=== PATIENT | female | born 1995 | race Asian ===

== ENCOUNTER → 2018-08-03 | Outpatient (CLI) | payer SELFPAY ==
[2018-08-03 13:49] LABS: BASO # 0.1 10^3/uL (0.0-0.2); BASO % 0.6 % (0.0-1.0); EOS # 0.2 10^3/uL (0.0-0.50); EOS % 1.8 % (0.0-3.0); HEMATOCRIT 36.7 % (36.0-47.0); HEMOGLOBIN 12.6 g/dl (12.0-15.5); LYMPH # 1.7 10^3/uL (1.5-6.5); LYMPH % 18.2 % (24.0-44.0); MEAN CORPUSCULAR HEMOGLOBIN 30.6 pg (27.0-33.0); MEAN CORPUSCULAR HGB CONC 34.3 g/dl (32.0-36.5); MEAN CORPUSCULAR VOLUME 89.1 fl (80.0-96.0); MONO # 0.6 10^3/uL (0.0-0.8); NEUTROPHILS # 6.9 10^3/uL (1.8-7.7); NEUTROPHILS % 73.1 % (36.0-66.0); PLATELET COUNT, AUTOMATED 339 10^3/uL (150-450); RED BLOOD COUNT 4.12 10^6/uL (4.00-5.40); WHITE BLOOD COUNT 9.4 10^3/uL (4.0-10.0)
[2018-08-03 15:18] LABS: CHLAMYDIA DNA AMPLIFICATION NEGATIVE (NEGATIVE); GC DNA AMPLIFICATION NEGATIVE (NEGATIVE)
[2018-08-04 10:59] LABS: HEPATITIS C VIRUS ABY INDEX 0.1 INDEX (<0.8); HIV 1&2 SCREEN CENTAUR NEGATIVE (NEGATIVE); RUBELLA IgG QUALITATIVE IMMUNE (IMMUNE)
== END ==
LOC: EDBD → M SMT 10:31
PROVIDERS: ATTEND Advanced Practice Midwife
DX: Z34.81 Encounter for supervision of other normal pregnancy, first trimester (principal); Z36.89 Encounter for other specified antenatal screening

== ENCOUNTER → 2018-09-18 | Outpatient (REF) | payer SELFPAY | LOC: M LAB REF 17:33 | PROVIDERS: ATTEND Obstetrics & Gynecology | DX: Z34.82 Encounter for supervision of other normal pregnancy, second trimester (principal); Z3A.00 Weeks of gestation of pregnancy not specified | CPT/HCPCS: 87086; G0123 ==

== ENCOUNTER → 2018-12-06 | Outpatient (CLI) | payer SELFPAY ==
[2018-12-06 20:24] LABS: HEMATOCRIT 32.8 % (36.0-47.0); HEMOGLOBIN 10.5 g/dl (12.0-15.5); MEAN CORPUSCULAR HEMOGLOBIN 30.8 pg (27.0-33.0); MEAN CORPUSCULAR VOLUME 96.2 fl (80.0-96.0); PLATELET COUNT, AUTOMATED 267 10^3/uL (150-450); RED BLOOD COUNT 3.41 10^6/uL (4.00-5.40); WHITE BLOOD COUNT 8.4 10^3/uL (4.0-10.0)
== END ==
LOC: M WUC 15:09
PROVIDERS: ATTEND Obstetrics & Gynecology
DX: Z34.02 Encounter for supervision of normal first pregnancy, second trimester (principal); Z3A.00 Weeks of gestation of pregnancy not specified

== ENCOUNTER → 2018-12-27 | Outpatient (CLI) | payer SELFPAY ==
--- NOTE | 2018-12-28 07:56 | REP ---
OB ULTRASOUND: Real-time sonographic evaluation of the gravid uterus performed. There is a single intrauterine gestation with an estimated age 31 weeks. 3 days, EDC 02/25/2019. Today's measurements indicate appropriate growth. Biometry and Growth: BPD 76 mm = 30 weeks 5 days, 39th percentile HC 285 mm = 31 weeks 2 days, 49th percentile AC 259 mm = 30 weeks 1 day, 30th percentile FL 59 mm = 30 weeks 5 days, 40th percentile HC/AC ratio 1.10 within normal range. Estimated weight 1578 grams, 24th percentile. SEEN/GROSSLY UNREMARKABLE Lateral ventricles Yes Posterior fossa Yes Upper lip Yes Four-chamber heart Yes LVOT Yes RVOT Yes Stomach Yes Cord insertion Yes Three vessel cord Yes Kidneys Yes Bladder Yes Spine Yes Cervical length: Closed and measures 2.6 cm in length. heart rate: 149 beats per minute. position: Vertex. Placenta: Anterior and grade 3 with no previa or abruption. Amniotic fluid: Within normal limits, WALLACE 18.8 within normal range of 8.7 to 24.0. S/D ratio: 3.12 and RI 0.68 within normal range. Electronically Signed by Angel Lobo MD 12/28/2018 09:24 A
== END ==
LOC: M RAD 17:22
PROVIDERS: ATTEND Obstetrics & Gynecology
DX: O26.843 Uterine size-date discrepancy, third trimester (principal); Z3A.31 31 weeks gestation of pregnancy

== ENCOUNTER → 2019-01-31 | Outpatient (CLI) | payer SELFPAY | LOC: M WUC 15:45 | PROVIDERS: ATTEND Advanced Practice Midwife | DX: Z34.03 Encounter for supervision of normal first pregnancy, third trimester (principal); Z3A.00 Weeks of gestation of pregnancy not specified ==

== ENCOUNTER → 2019-02-09 | Outpatient (CLI) | payer SELFPAY ==
[~2019-02-09] MED LIST: GNP28TAB2 PO
--- NOTE | 2019-02-09 14:36 | REP ---
Clinical: Growth evaluation Comparison: 12/27/2018 . Findings: Examination demonstrates a single live intrauterine in cephalic presentation. motion is identified by technologist. Placenta is noted the anterior and grade three without evidence for placenta previa or abruption. Amniotic fluid volume is normal. Cervix measures 2.3 cm in length and appears closed. No evidence for nuchal cord. Gestational age by LMP 37 weeks 5-day with BERTHA is 02/25/2019 . Gestational age by current measurements 34 weeks 0 days with BERTHA 03/23/2019 . FHR equals 140 beats per minute. BPD 8.6 cm 34 weeks 5 days HC 30.2 cm 33 weeks 4 days (less than 5th percentile) AC 29.1 cm 33 weeks 1 day (less than 5th percentile) FL 6.7 cm 34 weeks 4 days (less than 5th percentile) HL 5.8 cm 33 weeks 5 days (less than 5th percentile) HC/AC ratio 1.04 Estimated weight 2261 grams ( less than 3% percentile). Amniotic fluid index: 13.9 cm (7.4 - 24.1) Impression: Single live advanced gestation in cephalic presentation demonstrating less than appropriate interval growth. Electronically Signed by Lex Goins MD 02/09/2019 02:28 P
== END ==
LOC: M RAD 13:13
PROVIDERS: ATTEND Advanced Practice Midwife
DX: O26.13 Low weight gain in pregnancy, third trimester (principal); Z3A.37 37 weeks gestation of pregnancy

== ENCOUNTER 2019-02-14 10:33 | Inpatient (IN) | payer SELFPAY ==
[2019-02-14] VITALS (23 sets, daily range): BP systolic 95–124; BP diastolic 56–85
[~2019-02-14] VITALS: Ht 157.5 cm; Wt 45.4 kg
[2019-02-14] MEDS ORDERED: GNP28TAB2 PO (10:59)
[2019-02-14] MEDS ORDERED: OXYTOCIN DRIP 30 UNITS in APPROPRIATE DILUENT 1 EA IV SCH (12:15)
[2019-02-14] MEDS: LR 1,000 ML IV SCH ×3 (12:27→23:47)
[2019-02-14 12:35] LABS: HEMATOCRIT 35.6 % (36.0-47.0); HEMOGLOBIN 11.5 g/dl (12.0-15.5); MEAN CORPUSCULAR HEMOGLOBIN 29.4 pg (27.0-33.0); MEAN CORPUSCULAR HGB CONC 32.3 g/dl (32.0-36.5); PLATELET COUNT, AUTOMATED 285 10^3/uL (150-450); RED BLOOD COUNT 3.91 10^6/uL (4.00-5.40); WHITE BLOOD COUNT 7.4 10^3/uL (4.0-10.0)
--- NOTE | 2019-02-14 12:45 | HPE ---
DATE OF ADMISSION: 02/14/2019 HISTORY: Yanet is a 23-year-old, 1, para 0, at 38-3/7 weeks, expected date of confinement (EDC) of 02/25/2019 based on first trimester ultrasound who presents to labor and delivery today per consult of Dr. Hipolito Rodriguez for induction of labor due to intrauterine growth restricted fetus. She denies any painful contractions, vaginal bleeding or leakage of fluid. She does report the fetus has been active. The care was initiated at [facility] in the first trimester. course complicated by low body mass index (BMI). OBSTETRICAL HISTORY: Primigravid. OBSTETRIC LABS: O+, antibody screen negative, rubella immune, VDRL nonreactive. Urine culture, no growth followup after following treatment. Hepatitis B surface antigen negative. HIV negative. Hepatitis C antibody nonreactive. Gonorrhea and chlamydia negative. She did decline genetic serum screening labs. (GDS) gestational diabetic screening normal at 90. Her GBS is negative. PAST MEDICAL HISTORY: Childhood varicella. SURGERIES: None. FAMILY HISTORY: Noncontributory. SOCIAL HISTORY: The patient is single however the father of the baby is at bedside and supportive. She is a nonsmoker. Denies alcohol or drug use. She does report a history of chlamydia. Denies history of abuse - physical, sexual and emotional. ALLERGIES: SHELLFISH DERIVED PRODUCTS. CRAB EXTRACT. SHRIMP. CURRENT MEDICATIONS: vitamins OBJECTIVE: Temperature 98.5, pulse 91, respirations 18, BP 109/76. She is alert and oriented times three, in no apparent distress. heart rate 140 with moderate variability, positive accelerations, no decelerations. There is no pattern of regular contractions. Her abdomen is gravid, cephalic presentation. Estimated weight 2300 grams. Sterile Vaginal Exam: 3-4 cm, 80% effaced, 0 station. Most recent obstetric ultrasound with an estimated weight of 2261 grams, less than the third percentile. WALLACE is 13.9 cm. ASSESSMENT: Intrauterine at 38-3/7 weeks. heart rate category one. Intrauterine growth restriction. PLAN: Admit the patient to labor and delivery. Out of bed ad elizabeth. Clear liquid , following her finishing her current lunch. Routine lab work. I will start Pitocin IV for labor induction. I did review risks, benefits and alternatives. The patient and her partner have had their questions answered. She has been verbally consented for emergency surgery and blood products if necessary. I do anticipate a labor and a spontaneous vaginal delivery.
[2019-02-15] VITALS (10 sets, daily range): BP systolic 90–141; BP diastolic 54–84
[2019-02-15] MEDS ORDERED: OXYTOCIN DRIP 30 UNITS in APPROPRIATE DILUENT 1 EA IV SCH (00:46)
[2019-02-15] MEDS ORDERED: ANUSOL HC CREAM 30GM TOP PRN (01:00)
[2019-02-15] MEDS ORDERED: METHYLERGONOVINE MALEATE 0.2 MG TAB PO PRN (01:00)
[2019-02-15] MEDS ORDERED: IBUPROFEN 800 MG TAB PO PRN (01:00)
[2019-02-15] MEDS ORDERED: DIBUCAINE 1% OINTMENT 30GM TOP PRN (01:00)
[2019-02-15] MEDS ORDERED: DOCUSATE SODIUM 100 MG CAP PO PRN (01:00)
[2019-02-15] MEDS ORDERED: LIDOCAINE 1% MDV 20ML VIAL INFIL ONE (01:00)
[2019-02-15] MEDS ORDERED: RHOGAM 300 MCG (1500 IU) INJ (J2790) IM SCH (01:00)
[2019-02-15] MEDS ORDERED: MEASLES,MUMPS,RUBELLA VACCINE INJ (MMR-II) (90707) SC SCH (01:00)
[2019-02-15] MEDS ORDERED: IBUPROFEN 600 MG TAB PO PRN (01:00)
--- NOTE | 2019-02-15 08:29 | DN ---
DATE OF DELIVERY: 02/15/2019 Yanet is at 23-year-old 1, para 1-0-0-1 now, who was admitted to labor and delivery for induction of labor due to suspected intrauterine growth restricted fetus. IV Pitocin was utilized and labor did ensue. She coped with her labor physiologically. She had assisted rupture of membranes for a large amount of clear fluid at 2234 hours. She reached complete dilation at 2359 hours, pushed to a normal spontaneous vaginal delivery of a live female in OA position with restitution to ROT position at 0014 hours. shoulders delivered spontaneously and the corpus immediately followed. was placed on the maternal abdomen crying and active. Mouth and nares were bulb suctioned. Cord was clamped times two once pulsations ceased and cut by the father of the baby under my direction. Cord blood was obtained. Spontaneous expulsion of an intact placenta with three-vessel cord by Spears mechanism was at 0021 hours. Uterine hemostasis achieved with IV Pitocin rapid infusion and uterine fundal massage. Estimated blood loss 200 mL. Perineum and vagina inspected noted to have bilateral labial lacerations and a first-degree midline laceration. The right labial laceration and the midline vaginal laceration were infiltrated with 1% lidocaine and repaired with #3-0 Rapide in the usual fashion. Klemme female weighed 5 pounds 1 ounce, 2300 grams, appears to be small for gestational age versus intrauterine growth restricted infant. scores were 9 and 9. Mom is going to breastfeed her daughter and the family have named her Marilyn Walters. At the close of delivery lap counts, needle counts and instrument counts were correct and verified.
[2019-02-15] MEDS: PRENATAL VITAMINS CHEWABLE TABLET PO SCH (09:55)
[2019-02-15] MEDS: ACETAMINOPHEN TAB 650MG DOSE (2X325MG) PO PRN (19:39)
[2019-02-16 06:27] VITALS: BP 106/68
[2019-02-16] MEDS: PRENATAL VITAMINS CHEWABLE TABLET PO SCH (08:52)
[2019-02-16] MEDS: ACETAMINOPHEN 500 MG TAB PO PRN (08:53)
[2019-02-16] MEDS ORDERED: ADACEL/BOOSTRIX VACCINE (DIPHTH/PERTUSS/ACELL/TETANUS)0.5ML SYR (90715) IM ONE (09:00)
[2019-02-16 18:27] VITALS: BP 105/57
[2019-02-16] MEDS: ACETAMINOPHEN TAB 650MG DOSE (2X325MG) PO PRN (20:50)
[2019-02-17 06:15] VITALS: BP 101/72
[2019-02-17] MEDS: ACETAMINOPHEN 500 MG TAB PO PRN (08:30)
[2019-02-17] MEDS: PRENATAL VITAMINS CHEWABLE TABLET PO SCH (08:31)
== END 2019-02-17 13:15 | disposition home or self-care (01) | DRG 560 ==
LOC: M LDI 10:33 → M OBS 02-15 02:23
PROVIDERS: ADMIT Advanced Practice Midwife; ATTEND Advanced Practice Midwife
PROC: 3E033VJ Introduction of Other Hormone into Peripheral Vein, Percutaneous Approach (ICD-10-PCS; 2019-02-14)
PROC: 10907ZC Drainage of Amniotic Fluid, Therapeutic from Products of Conception, Via Natural or Artificial Opening (ICD-10-PCS; 2019-02-14)
PROC: 10E0XZZ Delivery of Products of Conception, External Approach (ICD-10-PCS; principal; 2019-02-15)
PROC: 0HQ9XZZ Repair Perineum Skin, External Approach (ICD-10-PCS; 2019-02-15)
DX: O36.5930 Maternal care for other known or suspected poor fetal growth, third trimester, not applicable or unspecified (principal); O70.0 First degree perineal laceration during delivery; Z3A.38 38 weeks gestation of pregnancy; Z37.0 Single live birth

== ENCOUNTER → 2019-07-05 | Outpatient (CLI) | payer SELFPAY, OTHER ==
[~2019-07-05] MED LIST changes: +KEFL500C17 PO
[2019-07-05 20:30] LABS: HEMATOCRIT 37.4 % (36.0-47.0); HEMOGLOBIN 11.9 g/dl (12.0-15.5); MEAN CORPUSCULAR HEMOGLOBIN 29.5 pg (27.0-33.0); MEAN CORPUSCULAR HGB CONC 31.8 g/dl (32.0-36.5); MEAN CORPUSCULAR VOLUME 92.8 fl (80.0-96.0); PLATELET COUNT, AUTOMATED 332 10^3/uL (150-450); RED BLOOD COUNT 4.03 10^6/uL (4.00-5.40); WHITE BLOOD COUNT 9.9 10^3/uL (4.0-10.0)
[2019-07-05 22:20] LABS: CHLAMYDIA DNA AMPLIFICATION NEGATIVE (NEGATIVE); GC DNA AMPLIFICATION NEGATIVE (NEGATIVE)
[2019-07-06 10:39] LABS: RUBELLA IgG QUALITATIVE IMMUNE (IMMUNE)
[2019-07-06 11:08] LABS: HEPATITIS C VIRUS ABY INDEX 0.2 INDEX (<0.8); HIV 1&2 SCREEN CENTAUR NEGATIVE (NEGATIVE)
== END ==
LOC: M WUC 16:44
PROVIDERS: ATTEND Advanced Practice Midwife
DX: Z33.1 Pregnant state, incidental (principal)

== ENCOUNTER 2019-07-06 16:32 | Emergency (ER) | payer OTHER, SELFPAY ==
[~2019-07-06] VITALS: Ht 160 cm; Wt 41.3 kg
[~2019-07-06 16:32] MED LIST changes: -KEFL500C17 PO
[2019-07-06 19:02] LABS: BASO % 0.5 % (0.0-1.0); EOS # 0.2 10^3/uL (0.0-0.5); EOS % 2.2 % (0.0-3.0); HEMOGLOBIN 12.8 g/dl (12.0-15.5); LYMPH # 2.1 10^3/uL (1.5-5.0); LYMPH % 23.4 % (24.0-44.0); MEAN CORPUSCULAR HEMOGLOBIN 29.6 pg (27.0-33.0); MEAN CORPUSCULAR VOLUME 92.4 fl (80.0-96.0); MONO # 0.5 10^3/uL (0.0-0.8); MONO % 5.9 % (0.0-5.0); NEUTROPHILS % 67.7 % (36.0-66.0); PLATELET COUNT, AUTOMATED 361 10^3/uL (150-450); RED BLOOD COUNT 4.33 10^6/uL (4.00-5.40); WHITE BLOOD COUNT 8.8 10^3/uL (4.0-10.0)
[2019-07-06 19:36] LABS: BLOOD UREA NITROGEN 6 MG/DL (7-18); CALCIUM LEVEL 9.6 MG/DL (8.5-10.1); CARBON DIOXIDE LEVEL 24 MEQ/L (21-32); CHLORIDE LEVEL 104 MEQ/L (98-107); CREATININE FOR GFR 0.73 MG/DL (0.55-1.30); GLOMERULAR FILTRATION RATE > 60.0 (>60); GLUCOSE, FASTING 87 MG/DL (70-100); HCG, SERUM QUANTITATIVE 91599 MIU/ML; POTASSIUM SERUM 3.7 MEQ/L (3.5-5.1); SODIUM LEVEL 136 MEQ/L (136-145)
--- NOTE | 2019-07-06 20:13 | REPVR ---
PROCEDURE INFORMATION: Exam: US First Trimester, Transabdominal Exam date and time: 07/06/2019 8:09 PM Age: 24 years old Clinical indication: Lmp or gestational age (in weeks): 11wks; Other: Vag bleeding; ; Additional info: Vaginal bleeding, 11 wks TECHNIQUE: Imaging protocol: Real-time transabdominal obstetrical ultrasound of the maternal pelvis and a first trimester , less than 14 weeks 0 days, with image documentation. COMPARISON: No relevant prior studies available. FINDINGS: GESTATION: Gestation: Single living gestation demonstrated within the uterus. Heart rate: heart rate is 160 bpm. Placenta: There is a 2.1 x 3.8 x 2.5 cm para placental subchorionic hemorrhage demonstrated. Amniotic fluid: Amniotic and chorionic fluid are normal for gestational age. BIOMETRY: Estimated gestational age: Gestational age based on crown-rump length is 11 weeks 6 days. This corresponds with LMP of 04/20/2019 predicting an age of 11 weeks. Palermo-Rump length: Palermo-rump length measures 5.2 cm. Estimated due date: EDC is 01/19/2020. MATERNAL: Uterus: Unremarkable. Cervix: Unremarkable. Right adnexa: Unremarkable. Left adnexa: Unremarkable. Intraperitoneal: No intraperitoneal free fluid. IMPRESSION: Subchorionic hemorrhage as described above. Otherwise unremarkable scan at 11 weeks 6 days using ultrasound measurements. Detailed structural survey can be performed between 19-20 weeks if clinically desired. Electronically signed by: Prince Chow On 07/06/2019 20:12:51 PM
[2019-07-06] MEDS ORDERED: KEFL500C17 PO (23:02)
[2019-07-06 23:10] VITALS: BP 107/52
[2019-07-06 23:26] LABS: CHLAMYDIA DNA AMPLIFICATION NEGATIVE (NEGATIVE); GC DNA AMPLIFICATION NEGATIVE (NEGATIVE)
== END 2019-07-06 23:12 | disposition home or self-care (01) ==
LOC: M ED 16:32
DX: O20.8 Other hemorrhage in early pregnancy (principal); O23.41 Unspecified infection of urinary tract in pregnancy, first trimester; Z87.891 Personal history of nicotine dependence; Z3A.11 11 weeks gestation of pregnancy

== ENCOUNTER → 2019-07-19 | Outpatient (REF) | payer SELFPAY ==
[~2019-07-19] MED LIST changes: +KEFL500C17 PO
== END ==
LOC: M SFHCWAGY 10:53
PROVIDERS: ATTEND Advanced Practice Midwife
DX: Z33.1 Pregnant state, incidental (principal)

== ENCOUNTER 2019-08-23 22:02 | Emergency (ER) | payer SELFPAY ==
[~2019-08-23] VITALS: Ht 160 cm; Wt 41.6 kg
[2019-08-23 22:04] VITALS: BP 112/69
[2019-08-23] MEDS ORDERED: ACET1TAB55 PO (22:09)
[2019-08-23 22:56] LABS: INFLUENZA A AMPLIFICATION NEGATIVE (NEGATIVE); INFLUENZA B AMPLIFICATION POSITIVE (NEGATIVE)
[2019-08-23] MEDS ORDERED: OSELTAMIVIR PHOSPHATE 75 MG CAP (TAMIFLU) PO ONE (23:30)
[2019-08-23] MEDS ORDERED: OSEL75CA PO (23:55)
== END 2019-08-24 00:16 | disposition home or self-care (01) ==
LOC: M ED 22:02
DX: O99.512 Diseases of the respiratory system complicating pregnancy, second trimester (principal); J11.89 Influenza due to unidentified influenza virus with other manifestations; Z3A.18 18 weeks gestation of pregnancy; Z91.013 Allergy to seafood

== ENCOUNTER → 2019-09-14 | Outpatient (CLI) | payer SELFPAY ==
[~2019-09-14] MED LIST changes: +ACET1TAB55 PO; +OSEL75CA PO
--- NOTE | 2019-09-14 19:18 | REP ---
Obstetric sonography: History: Supervision of , for anatomy. Findings: Scanning through the gravid uterus demonstrates a viable single intrauterine gestation in a transverse lie, head to the maternal left. motion is observed and heart rate is recorded at 149 beats per minute. A posterior grade 0 placenta is seen without evidence of previa or abruption. Amniotic fluid is subjectively normal. Closed cervical length is viewed transabdominally at 4.3 cm. No extrauterine abnormalities observed. nose and lips are seen but facial profile is less than optimally seen due to position. The following additional anatomic structures are identified today and felt to be unremarkable: cranium, choroid plexus, cavum, cerebellum and posterior fossa, four-chamber heart with left and right ventricular outflow tract views, diaphragm, left-sided stomach, abdominal wall cord insertion, three-vessel umbilical cord, kidneys and bladder, spine, upper and lower extremities. Biometry chart: BPD 5.3 cm = 22 weeks 2 days HC 19.3 cm = 21 weeks 4 days AC 14.6 cm = 19 weeks 6 days FL 3.5 cm = 21 weeks 0 days HL 3.3 cm = 20 weeks 6 days HC/AC ratio 1.33 (1.05-1.24. Cephalic index normal 0.78. Estimated weight 361 grams, 0 pounds 12 ounces, 32nd percentile for 21 weeks 0 days. Impression: Viable single intrauterine gestation at 20 weeks 6 days by today's composite sonographic criteria. Expected gestational age estimate based on prior sonography is 21 weeks 0 days. BERTHA by prior sonography January 25, 2020.
== END ==
LOC: M WHC 15:10
PROVIDERS: ATTEND Advanced Practice Midwife
DX: Z36.3 Encounter for antenatal screening for malformations (principal); Z3A.20 20 weeks gestation of pregnancy

== ENCOUNTER → 2019-10-23 | Outpatient (REF) | payer OTHER ==
[2019-10-23 17:34] LABS: MEAN CORPUSCULAR HEMOGLOBIN 31.6 pg (27.0-33.0); MEAN CORPUSCULAR HGB CONC 32.4 g/dl (32.0-36.5); MEAN CORPUSCULAR VOLUME 97.4 fl (80.0-96.0); PLATELET COUNT, AUTOMATED 271 10^3/uL (150-450); WHITE BLOOD COUNT 8.3 10^3/uL (4.0-10.0)
== END ==
LOC: M PLALAB 12:43
PROVIDERS: ATTEND Advanced Practice Midwife
DX: Z34.82 Encounter for supervision of other normal pregnancy, second trimester (principal)

== ENCOUNTER 2019-12-03 13:06 | Inpatient (IN) | payer SELFPAY ==
[2019-12-03] VITALS (20 sets, daily range): BP systolic 96–133; BP diastolic 50–82
[~2019-12-03] VITALS: Ht 157.5 cm; Wt 45.2 kg
[2019-12-03] MEDS ORDERED: LACTATED RINGER'S 1000 ML IV STA (13:33)
[2019-12-03] MEDS ORDERED: PENICILLIN G POTASSIUM IV 5 MU in D5W MINI-BAG PLUS 100 ML IV STA (13:33)
[2019-12-03] MEDS ORDERED: LR 1,000 ML IV SCH (13:33)
[2019-12-03] MEDS ORDERED: BETAMETHASONE SOLUSPAN 6MG/ML 5ML VIAL (J0702 PER 3MG) As Ordered ONE (13:35)
[2019-12-03] MEDS ORDERED: MAGNESIUM *L&D* 4GM/100ML BAG (40MG/ML) IV ONE (13:45)
[2019-12-03] MEDS ORDERED: BETAMETHASONE SOLUSPAN 6MG/ML 5ML VIAL (J0702 PER 3MG) IM SCH (13:45)
[2019-12-03] MEDS ORDERED: MAG Sulf (OBGYN) 20GM/500ML 20,000 MG in IV 1 EA IV SCH (13:45)
--- NOTE | 2019-12-03 13:54 | HPEPDOC ---
Obstetrical History & Physical General Date of Admission December 03, 2019 at 13:33 Primary Care Physician: YVROSE CLINE CNM History of Present Illness Patient is a 24-year-old female who is a at 32.4 weeks gestation with an BERTHA of 01/24/20 based off of her first trimester ultrasound. Her has been uncomplicated. She has not been seen since September but had a telephone visit in October but hasn't been seen in the office since. She presents to L&D in active labor. She reports she started cramping after sex last night and was a ble to sleep then about 11:00 she started getting regular cramping every 5 minutes but reports that she didn't feel like it was labor. She states that she came into L&D when she had some bright red spotting when she went to the bathroom. After she had the spotting she reports her contractions became painful. She reports active movement. She denies leaking of fluid. Chief Complaint: Other (active labor) Information Provided By: Patient Age: 24 : 2 Term: 1 Pre-term: 0 Abortions: 0 Livin Care Care: Limited Care Dating Final EDC: Jan 24, 2020 Final EDC by: 1st trimester (US) EGA at Admission: 32.4 Antepartum Course Diagnos(e)s labor Height (inches): 62 Pre- weight (lbs.): 92 Admission Weight (lbs.): 99 Change in Weight (lbs.): 7 Past Medical History Past Obstetrical History : Past Obstetrical History: Primgravida Gestation: 38.4 Type of Delivery: Spontaneous Vaginal Del. (02/15/2019) Sex of Infant: Female Complications: Yes (suspected IUGR but was SGA-induced due to this) GENERAL MAINTENANCE MECHANIC History: History of STD (chlamydia) Past Medical History Medical History no pertinent medical history Surgical History: Denies/None Family History Significant Family History: No pertinent family hx Social History Marital Status: Single Family situation: Spouse/partner home Psychosocial History: No pertinent psych hx * Smoker: non-smoker Alcohol: Denies Drugs: denies Abuse Violence Screening Have you been hit/kicked/slapp: No Have you been sexually assault: No Allergies Coded Allergies: SEAFOOD (Verified Allergy, Mild, RASH, 08/23/19) Medications Scheduled Acetaminophen (Acetaminophen) 325 Mg Tablet, 3 TAB PO DAILY for pain or fever Oseltamivir Phosphate (Tamiflu) 75 Mg Capsule, 1 CAP PO BID Pnv No.95/Ferrous Fum/Folic AC ( Vitamins Tablet) 1 Each Tablet, 1 TAB PO DAILY Physical Examination Physical Examination GENERAL: Alert and oriented times three. BREAST: . ABDOMEN: Gravid and non-tender to touch. FETUS: Is vertex (VTX) by sterile vaginal examination (SVE), fetus is vertex (VTX) by Deuce and by bedside sono. HEART RATE: Regular rate and rhythm. LUNGS: Clear to auscultation (CTA). PERINEUM: Small amount of blood noted at the introitus. SSE done showing membranes. EXTREMITIES: No edema. No clonus. Deep tendon reflexes (DTRs) + . Laboratory Data 24H LABS Laboratory Tests 2 12/03/19 13:40: Serology Scanned Report Hepatitis B Testing Urine Culture: No Growth Pertinent Laboratoy Data Blood Type: O+ RBC Antibody Screen: Negative HIV: Negative Hepatitis B: Negative Hepatitis C: Negative Rapid Plasma Reagin: Nonreactive Rubella: Immune Chlamydia/Gonorrhea: Negative Group B Streptococcus: Unknown Quad Screen Test: Declined Glucose Tolerance Test: 78 Steroid Therapy Steroid Therapy: Yes Date #1: December 03, 2019 Vaginal Examination Dilation: 8 cm Effacement: 80% Station: 0 Cervical Consistency: Soft Cervical Position: Anterior Presentation: Cephalic presentation Position: Vertex (occiput) Assessment Heart Rate (FHR): 130 Variability: Moderate Accelerations: Positive Decelerations: None Tocometer Contractions: Yes Frequency: regular Strength: palpated as strong Multi-drug resistant Organism: No history of MDRO Assessment/Plan Assessment IUP at 32.4 weeks gestation active labor GBS unknown Category I FHR tracing Plan Admit to L&D. Dr. Noel notified of patient being in department and plan of care collaborated. Occupational Therapy Supervisor on labor and NICU admission for . Dr. Bella notified and plans to be present fo rdelivery. Diet: NPO. Group B Streptococcus (GBS) unknown. Obtained GBS and prophylactic antibiotics per order. Labs and intravenous (IV) per unit protocol. Betamethasone IM injection now. Magnesium sulfate 4 gram loading dose ordered then at 50 ml/hr. COVID testing ordered and urine drug toxicology ordered. Anesthesia consult per patient's request. Lactated Ringers (LR): Bolus 800 mL, then at 125 mL/hr. Anticipate vaginal delivery. C-S as appropriate. YVROSE CLINE CNM December 03, 2019 13:53
[2019-12-03 14:08] LABS: HEMATOCRIT 35.1 % (36.0-47.0); HEMOGLOBIN 11.8 g/dl (12.0-15.5); MEAN CORPUSCULAR HEMOGLOBIN 31.4 pg (27.0-33.0); MEAN CORPUSCULAR HGB CONC 33.6 g/dl (32.0-36.5); MEAN CORPUSCULAR VOLUME 93.4 fl (80.0-96.0); PLATELET COUNT, AUTOMATED 266 10^3/uL (150-450); RED BLOOD COUNT 3.76 10^6/uL (4.00-5.40); WHITE BLOOD COUNT 10.3 10^3/uL (4.0-10.0)
[2019-12-03 14:11] LABS: APPEARANCE, URINE CLEAR (CLEAR); BACTERIA, URINE AUTO NEGATIVE (NEGATIVE); BILIRUBIN, URINE AUTO NEGATIVE (NEGATIVE); BLOOD, URINE BLOOD 3+ (NEGATIVE); COLOR, URINE STRAW (YELLOW); GLUCOSE, URINE (UA) AUTO NEGATIVE (NEGATIVE); KETONE, URINE AUTO TRACE mg/dL (NEGATIVE); LEUKOCYTE ESTERASE, URINE AUTO TRACE (NEGATIVE); NITRITE, URINE AUTO NEGATIVE (NEGATIVE); PROTEIN, URINE AUTO NEGATIVE (NEGATIVE); RBC, URINE AUTO 1 /HPF (0-3); SPECIFIC GRAVITY URINE AUTO 1.003 (1.002-1.035); SQUAMOUS EPITHELIAL CELL UR AU 1 /HPF (0-6); UROBILINOGEN, URINE AUTO 0.2 mg/dL (0.0-2.0); WBC, URINE AUTO 6 /HPF (0-3)
[2019-12-03] MEDS ORDERED: FENTANYL 2MCG/ML ROPIVACAINE 0.2% IN 0.9% NACL 100ML IVBAG As Ordered ONE (14:27)
[2019-12-03] MEDS ORDERED: OXYTOCIN 30 UNITS IN 0.9% NaCl 500ML IV BAG (J2590) As Ordered ONE (14:36)
[2019-12-03 14:38] LABS: AMPHETAMINES URINE REFLEX NEGATIVE (NEGATIVE); BARBITURATES URINE REFLEX NEGATIVE (NEGATIVE); BENZODIAZEPINES URINE REFLEX NEGATIVE (NEGATIVE); CANNABINOIDS URINE REFLEX NEGATIVE (NEGATIVE); COCAINE METABOLITE URINE REFLE NEGATIVE (NEGATIVE); METHADONE URINE REFLEX NEGATIVE (NEGATIVE); OPIATES URINE REFLEX NEGATIVE (NEGATIVE); PHENCYCLIDINE URINE REFLEX NEGATIVE (NEGATIVE)
[2019-12-03] MEDS ORDERED: NALOXONE INJ 0.4MG/1ML VIAL (J2310 PER 1MG) IV PRN (15:00)
[2019-12-03] MEDS ORDERED: EPIDURAL COMMENT XX SCH (15:00)
[2019-12-03] MEDS ORDERED: REFRIGERATOR IV KEYS XX PRN (15:00)
[2019-12-03] MEDS ORDERED: diphenhydrAMINE 50MG/ML VIAL (J1200) IV PRN (15:00)
[2019-12-03] MEDS ORDERED: ONDANSETRON 4MG/2ML VIAL IV PRN (15:00)
[2019-12-03] MEDS ORDERED: FENTANYL/ROPIVACAINE/NACL BAG 100 ML EPIDURAL SCH (15:00)
[2019-12-03] MEDS ORDERED: ePHEDrine SULFATE 25 MG/5 ML(5MG/ML) SYRINGE IV PRN (15:00)
[2019-12-03] MEDS ORDERED: LACTATED RINGER'S 1000 ML IV PRN (15:00)
[2019-12-03] MEDS ORDERED: EPIDURAL/PCA KEYS XX PRN (15:00)
[2019-12-03 16:32] LABS: CORD GAS ABE V -4.4; CORD GAS HCO3 V 20.6 MEQ/L; CORD GAS O2 SAT V 66.1 %; CORD GAS PCO2 V 37.8 mmHg; CORD GAS PH V 7.354 UNITS; CORD GAS PO2 V 26.7 mmHg; CORD GAS SBC V 20.2 MEQ/L; CORD GAS TCO2 V 21.7 MEQ/L
[2019-12-03 16:35] LABS: CORD GAS ABE A -6.2; CORD GAS HCO3 A 20.1 MEQ/L; CORD GAS O2 SAT A 37.9 %; CORD GAS PCO2 A 42.6 mmHg; CORD GAS PH A 7.292 UNITS; CORD GAS PO2 A 18.5 mmHg; CORD GAS SBC A 18.2 MEQ/L; CORD GAS TCO2 A 21.4 MEQ/L
[2019-12-03] MEDS ORDERED: OXYTOCIN DRIP 30 UNITS in IV 1 EA IV SCH (16:38)
[2019-12-03] MEDS ORDERED: DOCUSATE SODIUM 100 MG CAP PO PRN (16:45)
[2019-12-03] MEDS ORDERED: MEASLES,MUMPS,RUBELLA VACCINE INJ (MMR-II) (90707) SC SCH (16:45)
[2019-12-03] MEDS ORDERED: IBUPROFEN 800 MG TAB PO PRN (16:45)
[2019-12-03] MEDS ORDERED: ACETAMINOPHEN 500 MG TAB PO PRN (16:45)
[2019-12-03] MEDS ORDERED: METHYLERGONOVINE MALEATE 0.2 MG TAB PO PRN (16:45)
[2019-12-03] MEDS ORDERED: DIBUCAINE 1% OINTMENT 30GM TOP PRN (16:45)
[2019-12-03] MEDS ORDERED: ACETAMINOPHEN TAB 650MG DOSE (2X325MG) PO PRN (16:45)
[2019-12-03] MEDS ORDERED: IBUPROFEN 600 MG TAB PO PRN (16:45)
[2019-12-03] MEDS ORDERED: ANUSOL HC CREAM 30GM TOP PRN (16:45)
[2019-12-03] MEDS ORDERED: RHOGAM 300 MCG (1500 IU) INJ (J2790) IM SCH (16:45)
--- NOTE | 2019-12-03 16:55 | DNPDOC ---
[facility] Delivery Note Delivery Note DATE OF DELIVERY: 12/03/19 at 1620 PREDELIVERY DIAGNOSIS: 32-4/7 weeks' gestation and labor. POST DELIVERY DIAGNOSIS: Spontaneous vaginal delivery. [address] MAN: Yvrose Faulkner CNM, MARVA ANESTHESIA: epidural. ESTIMATED BLOOD LOSS: 350 mL. FINDINGS: 3 pounds 8 ounces; 1600 grams; male infant, Score 8/8, labor. DELIVERY SUMMARY: Patient is a 24-year-old female who is now a at 32 weeks 4 days gestation who presented to L&D in active labor. She was 8 cm upon arrival to hospital. The patient requested an epidural for pain management. She progressed to fully dilated at 1555. Dr. Bella was notified and present for delivery. AROM to a large amount of clear fluid at 1617. She pushed and delivered a living male in the OA position with restitution to ROT. The anterior shoulder delivered with ease and the corpus immediately followed at 1620. The baby was placed on the maternal abdomen active and crying. The cord was clamped x2 after about 1 minute and cut by the FOB. The baby was brought over to the warming table to be evaluated by Dr. Bella and staff. Cord gases and cord blood was obtained. The placenta delivered spontaneously at 1624. A 3-vessel cord was noted. The cord appears to be very short. Placenta and cord was sent to pathology. Uterine hemostasis was achieved via rapid infusion of IV Pitocin and fundal massage. A uterine sweep was done due to uterine atony and firmed up after this was done. The baby was transferred to the NICU. She plans to breast and formula feed her . They are naming him "Chugach." Both mom and baby are in stable condition. YVROSE FAULKNER CNM December 03, 2019 16:55
[2019-12-03] MEDS ORDERED: METHYLERGONOVINE MALEATE 0.2 MG/ML VIAL (J2210) As Ordered ONE (17:11)
[2019-12-03] MEDS ORDERED: METHYLERGONOVINE MALEATE 0.2 MG/ML VIAL (J2210) IM ONE (17:15)
[2019-12-03] MEDS ORDERED: PENICILLIN G POTASSIUM IV 2.5 MU in IV 1 EA IV SCH (18:00)
[2019-12-04 06:15] VITALS: BP 95/54
[2019-12-04] MEDS ORDERED: BOOSTRIX/ADACEL VACCINE (DIPHTH/PERTUSS/ACELL/TETANUS) 0.5ML SYR IM ONE (09:00)
[2019-12-04] MEDS ORDERED: INFLUENZA QUADRIVALENT PF VACCINE 0.5ML SYRINGE (90686) IM ONE (09:00)
[2019-12-04] MEDS: PRENATAL VITAMINS CHEWABLE TABLET PO SCH (10:35)
--- NOTE | 2019-12-04 11:22 | IPNPDOC ---
Progress Note Date of Service: December 04, 2019 Day#: 1 Progress Note SUBJECT: Patient is a 24-year-old female who is now a who presented to L&D in active labor at 32 weeks gestation. She delivered a living male who is doing well in the NICU with bi-pap. She plans to formula feed and breast feed her . She is currently not pumping but encouraged to do so if she plans to breast feed. She received a dose of IM Methergine and an extra bag of IV Pitocin to help with some extra bleeding and uterine atony after delivery. She has ambulated and voided today without difficulty. OBJECTIVE: VITAL SIGNS: Within normal limits, afebrile. Alert and oriented times three. Breath sounds clear to auscultation. Heart rate: Regular rate and rhythm, no murmurs, rubs or gallops. Abdomen: Fundus firm at U-2. Soft, NTTP. Minimal lochia. ASSESSMENT: Day 1 PLAN: 1. Anticipate discharge tomorrow with possibility of boarder status pending units availability. 2. Continue with pain management. 3. Continue with nursing care. VS, I&O, 24H, Fishbone Vital Signs/I&O Vital Signs Date Time Temp Pulse Resp B/P (MAP) Pulse Ox O2 Delivery O2 Flow Rate FiO2 12/04/19 06:15 98.3 73 20 95/54 (68) I&O- Last 24 Hours up to 6 AM 12/04/19 05:59 Intake Total 2323.3 ml Output Total 1050 ml Balance 1273.3 ml Laboratory Data 24H LABS Laboratory Tests 2 12/03/19 13:40: Serology Scanned Report Hepatitis B Testing 12/03/19 13:50: Coronavirus (COVID-19)(PCR) NEGATIVE 12/03/19 13:53: Nucleated Red Blood Cells % (auto) 0.0, Urine Color STRAW, Urine Appearance CLEAR, Urine pH 7.0, Urine Specific Dodson 1.003, Urine Protein NEGATIVE, Urine Glucose (Auto)(UA) NEGATIVE, Urine Ketones (Auto) TRACEH, Urine Blood 3+H, Urine Nitrite NEGATIVE, Urine Bilirubin NEGATIVE, Urine Urobilinogen 0.2, Urine Leukocyte Esterase (Auto) TRACEH, Urine WBC (Auto) 6H, Urine RBC (Auto) 1, Urine Hyaline Casts (Auto) 0, Urine Bacteria (Auto) NEGATIVE, Urine Squamous Epithelial Cells 1, Urine Sperm (Auto) , Cord Arterial Blood pH 7.292, Cord Arterial Blood PCO2 42.6, Cord Arterial Blood PO2 18.5, Cord Arterial Blood HCO3 20.1, Cord Arterial Blood Total CO2 21.4, Cord Arterial Blood Base Excess -6.2, Cord Arterial Base Excess (Standard 18.2, Cord Arterial Bld Oxygen Saturation 37.9, Cord Venous Blood pH 7.354, Cord Venous Blood PCO2 37.8, Cord Venous Blood PO2 26.7, Cord Venous Blood HCO3 20.6, Cord Venous Blood Total CO2 21.7, Cord Venous Base Excess (Actual) -4.4, Cord Venous Base Excess (Standard) 20.2, Cord Venous Blood Oxygen Saturation 66.1, Syphilis Serology NONREACTIVE 12/03/19 14:02: Urine Opiates Screen NEGATIVE, Urine Methadone Screen NEGATIVE, Urine Barbiturates Screen NEGATIVE, Urine Phencyclidine Screen NEGATIVE, Urine Amphetamines Screen NEGATIVE, Urine Benzodiazepines Screen NEGATIVE, Urine Cocaine Metabolite Screen NEGATIVE, Urine Cannabinoids Screen NEGATIVE CBC/BMP Laboratory Tests 12/03/19 13:53 Microbiology Microbiology 12/03/19 Group B Streptococcus Screen (BONNIE), Received Pending 12/03/19 Urine Culture, Received Pending YVROSE CLINE CNM December 04, 2019 11:21
[2019-12-04 17:51] VITALS: BP 101/56
[2019-12-05 06:17] VITALS: BP 100/57
[2019-12-05] MEDS ORDERED: BOOSTRIX/ADACEL VACCINE (DIPHTH/PERTUSS/ACELL/TETANUS) 0.5ML SYR IM ONE (09:00)
[2019-12-05] MEDS ORDERED: INFLUENZA QUADRIVALENT PF VACCINE 0.5ML SYRINGE (90686) IM ONE (09:00)
[2019-12-05] MEDS: PRENATAL VITAMINS CHEWABLE TABLET PO SCH (09:38)
== END 2019-12-05 10:00 | disposition home or self-care (01) | DRG 560 ==
LOC: M LDO 13:06 → M LDI 13:33 → M OBS 18:48
PROVIDERS: ADMIT Advanced Practice Midwife; ATTEND Advanced Practice Midwife
PROC: 10E0XZZ Delivery of Products of Conception, External Approach (ICD-10-PCS; principal; 2019-12-03)
PROC: 10907ZC Drainage of Amniotic Fluid, Therapeutic from Products of Conception, Via Natural or Artificial Opening (ICD-10-PCS; 2019-12-03)
DX: O60.14X0 Preterm labor third trimester with preterm delivery third trimester, not applicable or unspecified (principal); O75.89 Other specified complications of labor and delivery; Z3A.32 32 weeks gestation of pregnancy; Z11.59 Encounter for screening for other viral diseases; Z37.0 Single live birth; O69.3XX0 Labor and delivery complicated by short cord, not applicable or unspecified

== ENCOUNTER → 2020-04-24 | Outpatient (REF) | payer SELFPAY | LOC: M SFHCWAGY 16:59 | PROVIDERS: ATTEND Advanced Practice Midwife | DX: Z01.419 Encounter for gynecological examination (general) (routine) without abnormal findings (principal); Z12.4 Encounter for screening for malignant neoplasm of cervix ==

== ENCOUNTER → 2021-04-29 | Outpatient (REF) | payer SELFPAY, OTHER | LOC: M SFHCWAGY 18:58 | PROVIDERS: ATTEND Advanced Practice Midwife | DX: Z01.419 Encounter for gynecological examination (general) (routine) without abnormal findings (principal); Z12.4 Encounter for screening for malignant neoplasm of cervix ==